=== PATIENT | female | born 2000 | race African-American/Black ===

== ENCOUNTER 2020-08-23 04:30 | Observation (INO) | payer MEDICAID ==
[~2020-08-23] VITALS: Ht 170.2 cm; Wt 165.1 kg
[~2020-08-23 04:30] MED LIST: CLONIDINE; MELA10CA; PROZAC; VITAMIN D
== END 2020-08-23 09:30 | disposition home or self-care (01) ==
LOC: 8 EST LDRP 04:30
PROVIDERS: ADMIT Obstetrics & Gynecology; ATTEND Obstetrics & Gynecology
DX: O26.893 Other specified pregnancy related conditions, third trimester (principal); O24.419 Gestational diabetes mellitus in pregnancy, unspecified control; R10.9 Unspecified abdominal pain; Z3A.32 32 weeks gestation of pregnancy; V49.9XXA Car occupant (driver) (passenger) injured in unspecified traffic accident, initial encounter; Y93.89 Activity, other specified; Y92.488 Other paved roadways as the place of occurrence of the external cause
CPT/HCPCS: 59025; 76805; 76818; 82962; G0378; 99281; A4315

== ENCOUNTER 2021-09-14 03:05 | Emergency (ER) | payer MEDICAID ==
[~2021-09-14] VITALS: Ht 177.8 cm; Wt 113.0 kg
[~2021-09-14 03:05] MED LIST changes: -CLONIDINE; -MELA10CA; -PROZAC
[2021-09-14 04:49] LABS: BASOPHILS % 0.2 % (0.0-2.0); EOSINOPHILS % 2.9 % (0.0-5.0); HEMATOCRIT. 37.1 % (36.0-48.0); HEMOGLOBIN. 12.5 g/dL (12.0-16.0); LYMPHOCYTES % 12.3 % (20.0-50.0); MEAN CORPUSCULAR HEMOGLOBIN 29.4 pg (28.0-32.0); MEAN PLATELET VOLUME 8.6 fl (7.4-10.4); MONOCYTES % 5.7 % (2.0-8.0); NEUTROPHILS % 78.9 % (40.0-76.0); PLATELET 253 x1000/uL (130-400); RED BLOOD CELL COUNT 4.26 mill/uL (4.2-5.4); RED CELL DISTRIBUTION WIDTH 16.6 % (11.6-14.6)
[2021-09-14 05:00] LABS: CHLORIDE 110 mEq/L (98-107)
[2021-09-14 05:06] LABS: ETHANOL BLOOD < 10 mg/dL
[2021-09-14 05:07] LABS: CLARITY URINE CLEAR (CLEAR); COLOR URINE YELLOW (YELLOW); KETONES URINE NEGATIVE (NEGATIVE); LEUKOCYTE ESTERASE URINE NEGATIVE (NEGATIVE); NITRITE URINE NEGATIVE (NEGATIVE); OCCULT BLOOD URINE 1+ (NEGATIVE); PH URINE 7.5 (4.5-8.0); PROTEIN URINE NEGATIVE (NEGATIVE); SPECIFIC GRAVITY URINE 1.012 (1.005-1.030); UROBILINOGEN URINE 0.2 E.U./dL (0.2-1.0)
[2021-09-14 05:20] LABS: *AMPHETAMINES SCREEN URINE NEGATIVE (NEGATIVE); *BARBITURATES SCREEN URINE NEGATIVE (NEGATIVE); *BENZODIAZEPINES SCREEN URINE NEGATIVE (NEGATIVE); *COCAINE SCREEN URINE NEGATIVE (NEGATIVE)
[2021-09-14 05:21] LABS: CANNABINOID URINE SCREEN NEGATIVE (NEGATIVE); METHADONE URINE SCREEN NEGATIVE (NEGATIVE); OPIATES URINE SCREEN NEGATIVE (NEGATIVE); PHENCYCLIDINE URINE SCREEN NEGATIVE (NEGATIVE)
[2021-09-14] MEDS ORDERED: AZIT250T MT (06:03)
[2021-09-14] MEDS ORDERED: AZITHROMYCIN 500 MG TABLET PO SCH (06:15)
[2021-09-14 07:00] VITALS: BP 135/76
[2021-09-14 07:05] LABS: B-HCG QUANTITATIVE 19460 mIU/mL (<3)
== END 2021-09-14 07:58 | disposition home or self-care (01) ==
LOC: ER 03:05
DX: O98.512 Other viral diseases complicating pregnancy, second trimester (principal); Z20.822 Contact with and (suspected) exposure to COVID-19; O99.512 Diseases of the respiratory system complicating pregnancy, second trimester; J98.8 Other specified respiratory disorders; J18.9 Pneumonia, unspecified organism; Z3A.23 23 weeks gestation of pregnancy
CPT/HCPCS: 36415; 71045; 74018; 80053; 80305; 80320; 81003; 82962; 84702; 85025; 87426; 99291; G0480

== ENCOUNTER 2021-11-06 16:04 | Emergency (ER) | payer MEDICAID, OTHER ==
[~2021-11-06] VITALS: Ht 162.6 cm; Wt 127.0 kg
[~2021-11-06 16:04] MED LIST changes: +AZIT250T MT
[2021-11-06] MEDS ORDERED: CYCL10TA21 MT ×3 (17:54→17:55)
[2021-11-06] MEDS ORDERED: NAP5EC MT ×3 (17:54→17:55)
[2021-11-06 18:27] LABS: CHLORIDE 112 mEq/L (98-107)
[2021-11-06 18:33] LABS: ETHANOL BLOOD < 10 mg/dL
[2021-11-06 18:40] LABS: BASOPHILS % 0.4 % (0.0-2.0); EOSINOPHILS % 2.5 % (0.0-5.0); HEMATOCRIT. 29.5 % (36.0-48.0); HEMOGLOBIN. 9.4 g/dL (12.0-16.0); LYMPHOCYTES % 15.2 % (20.0-50.0); MEAN CORPUSCULAR HEMOGLOBIN 28.7 pg (28.0-32.0); MEAN CORPUSCULAR VOLUME 89.7 fL (81.0-99.0); MEAN PLATELET VOLUME 8.2 fl (7.4-10.4); MONOCYTES % 6.4 % (2.0-8.0); NEUTROPHILS % 75.5 % (40.0-76.0); PLATELET 333 x1000/uL (130-400); RED BLOOD CELL COUNT 3.29 mill/uL (4.2-5.4); RED CELL DISTRIBUTION WIDTH 15.5 % (11.6-14.6)
[2021-11-06 19:12] LABS: CLARITY URINE CLOUDY (CLEAR); COLOR URINE ORANGE (YELLOW); KETONES URINE NEGATIVE (NEGATIVE); LEUKOCYTE ESTERASE URINE 2+ (NEGATIVE); NITRITE URINE NEGATIVE (NEGATIVE); OCCULT BLOOD URINE 3+ (NEGATIVE); PH URINE 8.5 (4.5-8.0); PROTEIN URINE 1+ (NEGATIVE); SPECIFIC GRAVITY URINE 1.009 (1.005-1.030)
[2021-11-06 19:23] LABS: *AMPHETAMINES SCREEN URINE NEGATIVE (NEGATIVE); *BARBITURATES SCREEN URINE NEGATIVE (NEGATIVE); *BENZODIAZEPINES SCREEN URINE NEGATIVE (NEGATIVE); *COCAINE SCREEN URINE NEGATIVE (NEGATIVE); CANNABINOID URINE SCREEN NEGATIVE (NEGATIVE); METHADONE URINE SCREEN NEGATIVE (NEGATIVE); OPIATES URINE SCREEN NEGATIVE (NEGATIVE); PHENCYCLIDINE URINE SCREEN NEGATIVE (NEGATIVE)
[2021-11-06] MEDS ORDERED: CEPH500C2 MT (21:30)
[2021-11-06 21:55] VITALS: BP 104/67
== END 2021-11-06 21:57 | disposition home or self-care (01) ==
LOC: ER 16:04
DX: N39.0 Urinary tract infection, site not specified (principal); R53.1 Weakness; R42 Dizziness and giddiness
CPT/HCPCS: 36415; 80053; 80305; 80320; 81003; 85025; 93005; 99284; G0480

== ENCOUNTER 2021-11-26 17:04 | Emergency (ER) | payer MEDICAID ==
[~2021-11-26] VITALS: Ht 172.7 cm; Wt 136.0 kg
[~2021-11-26 17:04] MED LIST changes: +CEPH500C2 MT
[2021-11-26] MEDS ORDERED: CLONIDINE 0.2MG TABLET PO ONE (17:45)
[2021-11-26] MEDS ORDERED: KETOROLAC 30MG/ML VIAL IV ONE (17:45)
[2021-11-26] MEDS ORDERED: DEXAMETHASONE 4MG/ML 1ML VIAL IV SCH (18:00)
[2021-11-26] MEDS ORDERED: METOCLOPRAMIDE HCL 10MG/2ML VIAL IV ONE (18:00)
[2021-11-26] MEDS ORDERED: SUMATRIPTAN SUCCINATE 6MG/0.5ML VIAL SUBCUT ONE (19:15)
[2021-11-26] MEDS ORDERED: IMIT50 MT (20:38)
[2021-11-26 20:59] VITALS: BP 128/66
== END 2021-11-26 21:28 | disposition home or self-care (01) ==
LOC: ER 17:04
DX: G43.909 Migraine, unspecified, not intractable, without status migrainosus (principal); F41.9 Anxiety disorder, unspecified; J45.909 Unspecified asthma, uncomplicated; F32.9 Major depressive disorder, single episode, unspecified; I10 Essential (primary) hypertension; Z87.891 Personal history of nicotine dependence
CPT/HCPCS: 70450; 71045; 74018; 81025; 96372; 96374; 96375; 99285; J1100; J1885; J2765; J3030

== ENCOUNTER 2022-01-15 11:55 | Emergency (ER) | payer MEDICAID ==
[~2022-01-15] VITALS: Ht 172.7 cm; Wt 109.0 kg
[~2022-01-15 11:55] MED LIST changes: +IMIT50 MT
[2022-01-15 11:57] VITALS: BP 159/89
== END 2022-01-15 14:59 | disposition home or self-care (01) ==
LOC: ER 12:08
DX: T78.01XA Anaphylactic reaction due to peanuts, initial encounter (principal); X58.XXXA Exposure to other specified factors, initial encounter; I10 Essential (primary) hypertension; Y93.89 Activity, other specified; Y92.511 Restaurant or cafe as the place of occurrence of the external cause
CPT/HCPCS: 93005; 99283

== ENCOUNTER 2022-03-19 14:14 | Emergency (ER) | payer MEDICAID ==
[~2022-03-19] VITALS: Ht 172.7 cm; Wt 114.0 kg
[2022-03-19 14:19] VITALS: BP 156/96
== END 2022-03-19 15:37 | disposition left against medical advice (07) ==
LOC: ER 14:33
DX: Z53.21 Procedure and treatment not carried out due to patient leaving prior to being seen by health care provider (principal)